=== PATIENT | female | born 1975 | race Two or more races ===

== ENCOUNTER 2017-09-06 11:31 | Emergency (ER) | payer SELFPAY ==
[2017-09-06] MEDS ORDERED: NS 0.9% 1000 ML* 1,000 ML IV ONE (12:23)
[2017-09-06] MEDS ORDERED: Ketorolac INJ* 30 MG/ML 1 ML VIAL IV PUSH ONE (12:23)
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
[2017-09-06 15:21] VITALS: BP 105/64
== END 2017-09-06 15:19 | disposition home or self-care (01) ==
LOC: ED 11:31
DX: F07.81 Postconcussional syndrome (principal); G44.309 Post-traumatic headache, unspecified, not intractable; F43.20 Adjustment disorder, unspecified; F32.9 Major depressive disorder, single episode, unspecified
CPT/HCPCS: 96374; 99282; J1885

== ENCOUNTER 2018-03-14 16:33 | Emergency (ER) | payer OTHER ==
[2018-03-14 18:45] LABS: ABS Basophils 0.1 10^3/ul (0-0.2); ABS Eosinophils 0.1 10^3/ul (0-0.6); ABS Lymphocytes 1.8 10^3/ul (1.0-4.8); ABS Monocytes 0.4 10^3/ul (0-0.8); ABS Neutrophils 4.5 10^3/ul (1.5-7.7); ABS Nucleated RBC 0 10^3/ul; Eosinophil % 1.5 % (0-6); Hematocrit 38 % (35-47); Hemoglobin 12.9 g/dl (12.0-16.0); Lymphocyte % 26.2 % (25-47); Mean Corpuscular HGB Conc 35 g/dl (31-36); Mean Corpuscular Hemoglobin 31 pg (27-31); Mean Corpuscular Volume 90 fL (80-97); Mean Platelet Volume 8.6 um3 (7.4-10.4); Nucleated Red Blood Cells % 0.1; Platelet Count 230 10^3/ul (150-450); Red Blood Count 4.18 10^6/ul (4.00-5.40); Red Cell Distribution Width 13 % (10.5-15)
[2018-03-14 19:24] LABS: EGFR Non-African American 90.9 (>60)
--- NOTE | 2018-03-14 19:44 | RAD ---
Indication: 1 year RIGHT upper quadrant pain. Comparison: No relevant prior exams available on the [facility] PACS for comparison. Technique: RIGHT upper quadrant ultrasound. Report: Appropriate direction flow documented in the portal and hepatic veins. 14.5 cm liver is normal in echogenicity. Negative for focal hepatic lesions. Negative for intrahepatic biliary dilatation. 3.0 mm common bile duct. Adequately distended gallbladder with 1.1 mm wall is remarkable for a 0.35 cm maximum dimension polyp along the near wall without gross change compared with the prior exam. No visualized shadowing echogenic foci to indicate cholelithiasis. Negative for pericholecystic fluid. Negative for sonographic Rivas's sign. The pancreatic tail is partially obscured due to bowel gas with the visualized pancreas unremarkable. Negative for ascites. 10.3 cm RIGHT kidney is unremarkable. IMPRESSION: #. 0.35 cm probable cholesterol or inflammatory polyp. Gallbladder polyps 0.6 cm or smaller have extremely low risk of malignancy and typically do not warrant follow up. On occasion polyps may actually represent small gallstones adherent to the gallbladder wall at surgery. #. No acute pathologic process evident.
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
[2018-03-14 20:27] VITALS: BP 110/65
== END 2018-03-14 20:27 | disposition home or self-care (01) ==
LOC: ED 16:33
DX: R10.11 Right upper quadrant pain (principal)
CPT/HCPCS: 36415; 76705; 80053; 83690; 84702; 85025; 86140; 99282